=== PATIENT | female | born 1955 | race Caucasian/White ===

== ENCOUNTER 2025-02-07 05:07 | Day surgery (SDC) | payer OTHER ==
[2025-02-06 08:32] VITALS: BP 120/77
[~2025-02-07] VITALS: Ht 160 cm; Wt 62.6 kg
[~2025-02-07 05:07] MED LIST: ATORVASTATIN CA10 MG PO; DILTIAZEM 24HR240 MG PO; IRBESARTAN150 MG PO; SYMBICORT 16010.2 GM IH
[2025-02-07] MEDS ORDERED: CEFAZOLIN SODIUM 1,000 MG VIAL ONE (07:45)
[2025-02-07] MEDS ORDERED: BUPIVACAINE HCL/Mpf 0.5% 10ML VIAL ONE (09:53)
[2025-02-07] MEDS ORDERED: METHYLPREDNISOLONE ACETATE 80 MG/ML VIAL ONE (10:53)
[2025-02-07] MEDS ORDERED: MORPHINE SULFATE 4 MG/ML VIAL IV ONE (12:45)
== END 2025-02-07 15:20 | disposition home or self-care (01) ==
LOC: CIR.AMB 05:07
PROVIDERS: ATTEND Orthopaedic Surgery Hand Surgery
DX: S63.591A Other specified sprain of right wrist, initial encounter (principal); I10 Essential (primary) hypertension; J45.909 Unspecified asthma, uncomplicated